=== PATIENT | female | born 1970 | race Caucasian/White ===

== ENCOUNTER 2019-11-06 02:31 | Emergency (ER) | payer OTHER ==
[~2019-11-06] VITALS: Ht 167.6 cm; Wt 75.7 kg
[~2019-11-06 02:31] MED LIST: FLUO10CA13 PO
[2019-11-06] MEDS ORDERED: ATOR10TA9 PO (02:43)
[2019-11-06] MEDS ORDERED: LORazepam 1MG TABLET ONE (03:09)
[2019-11-06 03:15] LABS: BASOPHILS # (AUTO) 0.03 x10^3/uL (0-0.1); BASOPHILS % (AUTO) 0 % (0-1); EOSINOPHILS # (AUTO) 0.07 x10^3/uL (0-0.4); EOSINOPHILS % (AUTO) 1 % (1-7); LYMPHOCYTES # (AUTO) 1.59 x10^3/uL (1-3.4); LYMPHOCYTES % (AUTO) 16 % (22-44); MD NO; MEAN CORPUSCULAR HEMOGLOBIN 31.9 pg (27.0-34.8); MEAN CORPUSCULAR HGB CONC 34.2 g/dL (32.4-35.8); MEAN CORPUSCULAR VOLUME 93.2 fL (80-100); MEAN PLATELET VOLUME 8.1 fL (7.4-10.4); MONOCYTES # (AUTO) 0.26 x10^3/uL (0.2-0.8); MONOCYTES % (AUTO) 3 % (2-9); NEUTROPHILS % (AUTO) 80 % (42-75); PLATELET COUNT 231 x10^3/uL (130-400); RED BLOOD COUNT 4.69 x10^6/uL (3.82-5.3); RED CELL DISTRIBUTION WIDTH 12.5 % (9.6-15.2)
[2019-11-06 03:27] LABS: ALBUMIN 4.4 g/dL (3.4-5.0); ANION GAP 5 mmol/L (5-15); CALCIUM 9.4 mg/dL (8.5-10.1); CHLORIDE 109 mmol/L (98-107); CREATININE 0.96 mg/dL (0.55-1.02)
[2019-11-06] MEDS ORDERED: LORazepam 1MG TABLET PO ONE (03:30)
[2019-11-06 03:31] LABS: TROPONIN I < 0.015 ng/mL (0.000-0.045)
[2019-11-06 04:13] VITALS: BP 125/81
== END 2019-11-06 04:16 | disposition home or self-care (01) ==
LOC: ED 03:07
DX: R00.2 Palpitations (principal); F41.1 Generalized anxiety disorder; R42 Dizziness and giddiness; R06.02 Shortness of breath; R94.31 Abnormal electrocardiogram [ECG] [EKG]; Z90.710 Acquired absence of both cervix and uterus
CPT/HCPCS: 36415; 71045; 80048; 82040; 84443; 84484; 85025; 93005; 99285

== ENCOUNTER 2019-11-14 22:25 | Emergency (ER) | payer OTHER ==
[~2019-11-14] VITALS: Ht 167.6 cm; Wt 74.0 kg
[~2019-11-14 22:25] MED LIST changes: +ATOR10TA9 PO
[2019-11-14] MEDS ORDERED: LORazepam 1MG TABLET ONE (22:57)
[2019-11-14] MEDS ORDERED: LORazepam 1MG TABLET PO ONE (23:00)
--- NOTE | 2019-11-14 23:02 | NUR ---
PT HERE FOR ANXIETY. PT TOOK HOME MEDICATION BUT ANXIETY BECAME WORSE. FEELING STARTED TO RESOLVE BUT PT STILL A BIT ANXIOUS. PT MEDICATED AND WILL BE DISCHARGED. CALL [facility] IN [facility]
[2019-11-14 23:23] VITALS: BP 119/72
--- NOTE | 2019-11-14 23:23 | NUR ---
Patient given discharge instructions and they have confirmed that they understand the instructions. Patient ambulatory with steady gait.
== END 2019-11-14 23:25 | disposition home or self-care (01) ==
LOC: ED 23:19
DX: F41.1 Generalized anxiety disorder (principal); R94.31 Abnormal electrocardiogram [ECG] [EKG]; Z90.49 Acquired absence of other specified parts of digestive tract
CPT/HCPCS: 93005; 99283